=== PATIENT | female | born 1960 | race Caucasian/White ===

== ENCOUNTER 2017-09-22 14:00 | Observation (INO) | payer MEDICARE, MEDICAID ==
[~2017-09-22] VITALS: Ht 167.6 cm; Wt 63.6 kg
[~2017-09-22 14:00] MED LIST: AMOXICILLIN500 MG PO; BC FAST PAIN OR; CEPHALEXIN500 MG PO; CIPRO500 MG PO; CIPROFLOXACN500 MG PO; DILAUDID 2MG2 MG/TA1 PO; FIORICET PO; FLAGYL500 MG PO; FLEXERIL OR; FLEXERIL10 MG OR; FLONASE NASAL50 MCG; LISINOPRIL10 MG PO; LORTAB 5 OR; LORTAB5 PO; MEDDOSEPAK PO; METRONIDAZOL500 MG PO; NO; ROBITUSSIN AC10 ML PO; ULTRAM50 M1 PO; ZPAK PO
--- NOTE | 2017-09-22 14:04 | NUR ---
AMBULATORY TO ER ROOM 15, TO BED
--- NOTE | 2017-09-22 14:48 | NUR ---
PT RESTS IN THE STRETCHER, NO ACUTE DISTRESS, STATES THAT SHE HAS BEEN FIGHTING THIS BUG FOR 14 DAYS, NOT IMPROVING.
[2017-09-22 15:23] LABS: HEMATOCRIT 44.6 % (37.0-47.0); HEMOGLOBIN 14.9 g/dl (12.0-16.0); IMMATURE GRANULOCYTES 0.5 % (0.0-1.0); MEAN CELL VOLUME 98.7 fL CALC (80.0-100.0); MEAN CORPUSCULAR HGB CONC 33.4 g/L CALC (32.0-36.0); NEUT# 3.03 thou/uL (2.00-7.15); RED BLOOD COUNT 4.52 mill/uL (4.20-5.60); RED CELL DISTRI WIDTH 12.1 % (11.5-15.5)
[2017-09-22 15:41] LABS: URINE BILIRUBIN - DIPSTICK NEGATIVE (NEGATIVE); URINE BLOOD DIPSTICK NEGATIVE (NEGATIVE); URINE COLOR YELLOW; URINE GLUCOSE - DIPSTICK NEGATIVE (NEGATIVE); URINE KETONE NEGATIVE (NEGATIVE); URINE LEUK ESTERASE NEGATIVE (NEGATIVE); URINE NITRITE - DIPSTICK NEGATIVE (Negative); URINE PH 5.5 (4.5-8.0); URINE PROTEIN - DIPSTICK NEGATIVE (NEG-TRACE); URINE SPECIFIC GRAVITY 1.025; URINE UROBILINOGEN - DIPSTICK 0.2 E.U./dL (0.2)
[2017-09-22 15:42] LABS: URINE CLARITY CLEAR
[2017-09-22 15:44] LABS: ALBUMIN 4.6 g/dL (3.2-5.0); ALKALINE PHOSPHATASE 131 u/l (38-126); ANION GAP 17 (6-22 (CALC)); BILIRUBIN, TOTAL 0.5 mg/dL (0.0-1.4); BUN 18 mg/dL (7-17); BUN/CREATININE RATIO 21 (12-20 (CALC)); CARBON DIOXIDE 26 mmol/l (22-30); CHLORIDE 106 mmol/l (95-108); CREATININE 0.8 mg/dL (0.5-1.0); GFR > 60 ML/MIN (>=60 (CALC)); GFR FOR AFR.AMER. > 60 ML/MIN (>=60 (CALC)); LIPASE 284 u/l (23-300); POTASSIUM 4.3 mmol/l (3.5-5.1); SGOT/AST 28 u/l (14-36); SGPT/ALT 34 u/l (9-52); SODIUM 144 mmol/l (137-146); TOTAL PROTEIN 7.5 g/dL (6.3-8.2)
--- NOTE | 2017-09-22 16:10 | NUR ---
SBAR PRINTED TO FLOOR
[2017-09-22 17:00] VITALS: BP 116/68
--- NOTE | 2017-09-22 17:00 | NUR ---
PT PROVIDED ZOFRAN AND MORPHINE PRIOR TO DEPARTURE TO FLOOR. REPORT WAS TO
--- NOTE | 2017-09-22 17:15 | NUR ---
PT.ARRIVED TO FLOOR VIA STRETCHER ACCOMPANIED BY SUKHI OF ED. PT.SELF AMBULATED TO STANDING SCALE AND TO BED. PT.APPEARS TO BE IN STABLE CONDITION AT THIS TIME. V/S ARE BEING ASSESSED AND PT.ORIENTED TO ROOM,CALL SYSTEM, LIGHTS, BED AND TV. PT.HAS BEEN INSTRUCTED TO CALL IF SHE NEEDS ANY ASSISTANCE OR INCREASED PAIN.
[2017-09-22 18:55] VITALS: BP 109/64
--- NOTE | 2017-09-22 19:00 | NUR ---
RECEIVED CHANGE OF SHIFT REPORT FROM RL MURRAY. PATIENT ALERT AND ORIENTED AND LYING IN BED. REPORTS UNRELIEVED PAIN OF 3 OD 0-10 PAIN SCALE TO EPIGASTRIC AREA. WILL CONTINUE TO MONITOR.
--- NOTE | 2017-09-23 | NUR ---
PATIENT RESTING QUIETLY WITH EYES CLOSED AND APPEARS TO BE ASLEEP. NO APPARENT ACUTE DISTRESS NOTED.
--- NOTE | 2017-09-23 04:00 | NUR ---
PATIENT AWAKE AND LYING IN BED. NO APPARENT ACUTE CHANGES NOTED IN PT'S CONDITION.
[2017-09-23 04:35] VITALS: BP 96/63
[2017-09-23 06:25] LABS: CHOLESTEROL HDL RATIO 3.6 (<4.4 (CALC))
[2017-09-23 07:40] VITALS: BP 120/59
--- NOTE | 2017-09-23 07:40 | NUR ---
PT.IS UPRIGHT IN BED AWAKE. REPORT HAS BEEN RECEIVED FROM NIGHT NURSE NNAMDI. PT.APPEARS TO BE STABLE AT THIS TIME, DENIES ANY PAIN, BUT REPORTS HAVING PAIN DURING THE NIGHT. V/S AND PT.ASSESSMENT COMPLETE, NEG ASSESSMENT AT THIS TIME, NO BM REPORTED, LUNG SOUNDS ARE CLEAR AND PT.REPORTS NO DIFFICULTY URINATING, NEURO'S ARE INTACT. CALL LIGHT IS W/IN REACH AND PT.HAS BEEN INSTRUCTED TO CALL IF ANY ASSISTANCE IS NEEDED.
--- NOTE | 2017-09-23 10:38 | NUR ---
PT.MEDICATED FOR EPIGASTRIC PAIN 10/23 W/MAGIC MOUTHWASH AND PROTONIX. POC DISCUSSED AND NICOTINE PATCH WAS REPLACED. FAMILY JUST ARRIVED TO VISIT. CALL LIGHT IS AT SIDE AND PT.HAS BEEN INSTRUCTED TO CALL IF ANY NEEDS ARISE
[2017-09-23 11:07] VITALS: BP 111/52
--- NOTE | 2017-09-23 11:20 | NUR ---
PT.REPORTS THAT SHE DOES NOT FEEL LIKE THE MAGIC MOUTH WASH IMPROVED SYMPTOMS VERY MUCH, BUT THAT SHE THINKS THAT IT MAY BE MUSCULER FROM COUGHING OVER THE LAST TWO WEEKS.
[2017-09-23] MEDS ORDERED: ROBITUSSIN AC10 ML PO (12:12)
[2017-09-23] MEDS ORDERED: MEDDOSEPAK PO (12:14)
== END 2017-09-23 13:04 | disposition home or self-care (01) ==
LOC: ED 14:00 → ED-I 15:56 → ED 16:23 → MS2 16:24
PROVIDERS: Family Medicine; ADMIT Internal Medicine; ATTEND Internal Medicine
DX: R07.89 Other chest pain (principal); J40 Bronchitis, not specified as acute or chronic; I10 Essential (primary) hypertension; F17.210 Nicotine dependence, cigarettes, uncomplicated

== ENCOUNTER → 2018-05-20 | Outpatient (REF) | payer MEDICARE, MEDICAID ==
[2018-05-20 09:58] LABS: URINE BILIRUBIN - DIPSTICK NEGATIVE (NEGATIVE); URINE BLOOD DIPSTICK NEGATIVE (NEGATIVE); URINE COLOR YELLOW; URINE GLUCOSE - DIPSTICK NEGATIVE (NEGATIVE); URINE KETONE TRACE mg/dL (NEGATIVE); URINE LEUK ESTERASE NEGATIVE (NEGATIVE); URINE NITRITE - DIPSTICK NEGATIVE (Negative); URINE PH 5.5 (4.5-8.0); URINE PROTEIN - DIPSTICK NEGATIVE (NEG-TRACE); URINE SPECIFIC GRAVITY >=1.030; URINE UROBILINOGEN - DIPSTICK 0.2 E.U./dL (0.2)
[2018-05-20 10:06] LABS: URINE CLARITY CLEAR
[2018-05-20 10:22] LABS: ALBUMIN 4.3 g/dL (3.2-5.0); ALKALINE PHOSPHATASE 110 u/l (38-126); ANION GAP 15 (6-22 (CALC)); BILIRUBIN, TOTAL 0.3 mg/dL (0.0-1.4); BUN 18 mg/dL (7-17); BUN/CREATININE RATIO 23 (12-20 (CALC)); CALCULATED LDLCHOLESTEROL 95 mg/dL (62-129 (CALC)); CARBON DIOXIDE 26 mmol/l (22-30); CHLORIDE 108 mmol/l (95-108); CHOLESTEROL HDL RATIO 2.6 (<4.4 (CALC)); CREATININE 0.8 mg/dL (0.5-1.0); GFR > 60 ML/MIN (>=60 (CALC)); GFR FOR AFR.AMER. > 60 ML/MIN (>=60 (CALC)); HDL CHOLESTEROL 71 mg/dL (>=40); SGOT/AST 20 u/l (14-36); SODIUM 144 mmol/l (137-146); TOTAL CHOLESTEROL 188 mg/dl (0-199); TOTAL TRIGLYCERIDES 110 mg/dl (30-149); VLDL CHOLESTROL 22 mg/dl (2-49 (CALC))
[2018-05-20 10:28] LABS: POTASSIUM 5.2 mmol/l (3.5-5.1)
[2018-05-20 10:35] LABS: HEMATOCRIT 42.6 % (37.0-47.0); HEMOGLOBIN 14.3 g/dl (12.0-16.0); MEAN CELL VOLUME 100.2 fL CALC (80.0-100.0); MEAN CORPUSCULAR HGB 33.6 pG CALC (26.0-32.0); MEAN CORPUSCULAR HGB CONC 33.6 g/L CALC (32.0-36.0); RED BLOOD COUNT 4.25 mill/uL (4.20-5.60); RED CELL DISTRI WIDTH 12.1 % (11.5-15.5)
[2018-05-20 10:50] LABS: TSH, 3RD GENERATION 2.32 uIU/mL (0.47 - 4.68)
== END | disposition home or self-care (01) ==
LOC: LAB 09:09
PROVIDERS: ATTEND Nurse Practitioner Adult Health
DX: I10 Essential (primary) hypertension (principal)

== ENCOUNTER 2018-09-28 06:36 | Day surgery (SDC) | payer MEDICARE, MEDICAID ==
[~2018-09-28] VITALS: Ht 167.6 cm; Wt 61.7 kg
[~2018-09-28 06:36] MED LIST changes: +NORCO1 TA2 PO
[2018-09-28 09:25] VITALS: BP 133/77
== END 2018-09-28 09:35 | disposition home or self-care (01) ==
LOC: ENDO 06:36
PROVIDERS: ATTEND Surgery
PROC: 0DJD8ZZ Inspection of Lower Intestinal Tract, Via Natural or Artificial Opening Endoscopic (ICD-10-PCS; principal; 2018-09-28)
DX: Z12.11 Encounter for screening for malignant neoplasm of colon (principal); K57.30 Diverticulosis of large intestine without perforation or abscess without bleeding; K56.699 Other intestinal obstruction unspecified as to partial versus complete obstruction; I10 Essential (primary) hypertension; F17.200 Nicotine dependence, unspecified, uncomplicated; Z80.0 Family history of malignant neoplasm of digestive organs

== ENCOUNTER 2019-03-08 13:17 | Emergency (ER) | payer MEDICARE, MEDICAID ==
[~2019-03-08] VITALS: Ht 167.6 cm; Wt 70.0 kg
[2019-03-08 14:05] VITALS: BP 153/76
== END 2019-03-08 14:05 | disposition home or self-care (01) ==
LOC: ED 13:17
DX: S09.90XA Unspecified injury of head, initial encounter (principal); R51 Headache; I10 Essential (primary) hypertension; F17.200 Nicotine dependence, unspecified, uncomplicated; W18.2XXA Fall in (into) shower or empty bathtub, initial encounter; Y93.E1 Activity, personal bathing and showering

== ENCOUNTER 2019-06-06 09:40 | Emergency (ER) | payer MEDICARE, MEDICAID ==
[~2019-06-06] VITALS: Ht 167.6 cm; Wt 95.0 kg
[2019-06-06] MEDS ORDERED: BACTRIM DS1 TAB PO (10:39)
[2019-06-06 10:55] VITALS: BP 139/74
[2019-06-06] MEDS ORDERED: LISINOPRIL40 MG PO (10:57)
[2019-06-06] MEDS ORDERED: HYDROCO/APAP1 TA9 PO (10:58)
[2019-06-06] MEDS ORDERED: DULOXETINE HCL30 MG PO (10:58)
== END 2019-06-06 10:55 | disposition home or self-care (01) ==
LOC: ED 09:40
DX: J01.90 Acute sinusitis, unspecified (principal); I10 Essential (primary) hypertension; F17.210 Nicotine dependence, cigarettes, uncomplicated

== ENCOUNTER 2020-05-13 14:02 | Emergency (ER) | payer MEDICARE, MEDICAID ==
[~2020-05-13] VITALS: Ht 167.6 cm; Wt 66.4 kg
[~2020-05-13 14:02] MED LIST changes: +BACTRIM DS1 TAB PO; +DULOXETINE HCL30 MG PO; +HYDROCO/APAP1 TA9 PO; +LISINOPRIL40 MG PO
[2020-05-13 14:32] LABS: HEMATOCRIT 40.7 % (37.0-47.0); HEMOGLOBIN 13.4 g/dl (12.0-16.0); IMMATURE GRANULOCYTES 0.4 % (0.0-5.0); MEAN CELL VOLUME 100.7 fL CALC (80.0-100.0); MEAN CORPUSCULAR HGB 33.2 pG CALC (26.0-32.0); MEAN CORPUSCULAR HGB CONC 32.9 g/dL CAL (32.0-36.0); NEUT# 6.04 thou/uL (2.00-7.15); RED BLOOD COUNT 4.04 mill/uL (4.20-5.60); RED CELL DISTRI WIDTH 12.2 % (11.5-15.5)
[2020-05-13 14:38] LABS: URINE BILIRUBIN - DIPSTICK NEGATIVE (NEGATIVE); URINE BLOOD DIPSTICK NEGATIVE (NEGATIVE); URINE COLOR YELLOW; URINE GLUCOSE - DIPSTICK NEGATIVE (NEGATIVE); URINE KETONE NEGATIVE (NEGATIVE); URINE LEUK ESTERASE NEGATIVE (NEGATIVE); URINE NITRITE - DIPSTICK NEGATIVE (Negative); URINE PH 5.5 (4.5-8.0); URINE PROTEIN - DIPSTICK NEGATIVE (NEG-TRACE); URINE UROBILINOGEN - DIPSTICK 0.2 E.U./dL (0.2)
[2020-05-13 15:05] LABS: ALBUMIN 4.9 g/dL (3.2-5.0); ALKALINE PHOSPHATASE 134 u/l (38-126); ANION GAP 14 (6-22 (CALC)); BILIRUBIN, TOTAL 0.6 mg/dL (0.0-1.4); BUN 12 mg/dL (7-17); BUN/CREATININE RATIO 18 (12-20 (CALC)); CARBON DIOXIDE 25 mmol/l (22-30); CHLORIDE 103 mmol/l (95-108); CREATININE 0.7 mg/dL (0.5-1.0); GFR > 60 ML/MIN (>=60 (CALC)); GFR FOR AFR.AMER. > 60 ML/MIN (>=60 (CALC)); POTASSIUM 4.3 mmol/l (3.5-5.1); SGOT/AST 26 u/l (14-36); SODIUM 138 mmol/l (137-146)
[2020-05-13] MEDS ORDERED: ZOFRAN4 MG/TAB PO ×2 (16:17)
[2020-05-13] MEDS ORDERED: DICYCLOMINE20 MG PO ×2 (16:17)
[2020-05-13 16:39] VITALS: BP 180/79
== END 2020-05-13 16:39 | disposition home or self-care (01) ==
LOC: ED 14:02
PROVIDERS: Student in an Organized Health Care Education/Training Program
DX: K57.30 Diverticulosis of large intestine without perforation or abscess without bleeding (principal); I10 Essential (primary) hypertension; F17.200 Nicotine dependence, unspecified, uncomplicated
CPT/HCPCS: Q9967

== ENCOUNTER 2020-05-28 08:57 | Emergency (ER) | payer MEDICARE, MEDICAID ==
[~2020-05-28] VITALS: Ht 167.6 cm; Wt 66.0 kg
[~2020-05-28 08:57] MED LIST changes: +DICYCLOMINE20 MG PO; +ZOFRAN4 MG/TAB PO
[2020-05-28 09:49] LABS: HEMATOCRIT 44.4 % (37.0-47.0); HEMOGLOBIN 14.5 g/dl (12.0-16.0); IMMATURE GRANULOCYTES 0.4 % (0.0-5.0); MEAN CELL VOLUME 100.7 fL CALC (80.0-100.0); MEAN CORPUSCULAR HGB 32.9 pG CALC (26.0-32.0); MEAN CORPUSCULAR HGB CONC 32.7 g/dL CAL (32.0-36.0); NEUT# 7.82 thou/uL (2.00-7.15); RED BLOOD COUNT 4.41 mill/uL (4.20-5.60); RED CELL DISTRI WIDTH 12.1 % (11.5-15.5)
[2020-05-28 09:56] LABS: URINE BILIRUBIN - DIPSTICK NEGATIVE (NEGATIVE); URINE BLOOD DIPSTICK NEGATIVE (NEGATIVE); URINE COLOR YELLOW; URINE GLUCOSE - DIPSTICK NEGATIVE (NEGATIVE); URINE KETONE NEGATIVE (NEGATIVE); URINE LEUK ESTERASE NEGATIVE (NEGATIVE); URINE PH 5.5 (4.5-8.0); URINE PROTEIN - DIPSTICK NEGATIVE (NEG-TRACE); URINE UROBILINOGEN - DIPSTICK 0.2 E.U./dL (0.2)
[2020-05-28 10:02] LABS: URINE NITRITE - DIPSTICK POSITIVE (Negative)
[2020-05-28 10:03] LABS: URINE BACTERIA MANY hpf; URINE EPITHELIAL CELLS FEW EPI/hpf (0-FEW)
[2020-05-28 10:06] LABS: ALBUMIN 4.8 g/dL (3.2-5.0); ALKALINE PHOSPHATASE 188 u/l (38-126); AMYLASE 70 u/l (30-110); ANION GAP 16 (6-22 (CALC)); BILIRUBIN, TOTAL 0.8 mg/dL (0.0-1.4); BUN 13 mg/dL (7-17); BUN/CREATININE RATIO 22 (12-20 (CALC)); CARBON DIOXIDE 22 mmol/l (22-30); CHLORIDE 104 mmol/l (95-108); CREATININE 0.6 mg/dL (0.5-1.0); GFR > 60 ML/MIN (>=60 (CALC)); GFR FOR AFR.AMER. > 60 ML/MIN (>=60 (CALC)); LIPASE 115 u/l (23-300); POTASSIUM 4.6 mmol/l (3.5-5.1); SODIUM 137 mmol/l (137-146)
[2020-05-28 10:08] LABS: SGOT/AST 47 u/l (14-36)
[2020-05-28 10:18] LABS: MYOGLOBIN 21 ng/mL (0 - 62)
[2020-05-28] MEDS ORDERED: CIPROFLOXACN500 MG PO (12:36)
[2020-05-28] MEDS ORDERED: METRONIDAZOL500 MG PO (12:36)
[2020-05-28] MEDS ORDERED: ULTRAM50 M1 PO (12:39)
[2020-05-28 13:38] VITALS: BP 147/69
--- NOTE | 2020-05-30 15:41 | NUR ---
Attempted to contact pt concerning urine culture results. Left message to return call to Pharmacy department.
== END 2020-05-28 13:59 | disposition home or self-care (01) ==
LOC: ED 08:57
PROVIDERS: Emergency Medicine
DX: K57.32 Diverticulitis of large intestine without perforation or abscess without bleeding (principal); N39.0 Urinary tract infection, site not specified; B96.20 Unspecified Escherichia coli [E. coli] as the cause of diseases classified elsewhere; I10 Essential (primary) hypertension; F17.210 Nicotine dependence, cigarettes, uncomplicated
CPT/HCPCS: Q9967

== ENCOUNTER 2022-02-19 08:33 | Emergency (ER) | payer MEDICARE, MEDICAID ==
[~2022-02-19] VITALS: Ht 167.6 cm; Wt 65.9 kg
[2022-02-19 08:57] LABS: HEMATOCRIT 38.9 % (37.0-47.0); HEMOGLOBIN 13.1 g/dl (12.0-16.0); IMMATURE GRANULOCYTES 0.2 % (0.0-5.0); MEAN CELL VOLUME 99.5 fL CALC (80.0-100.0); MEAN CORPUSCULAR HGB 33.5 pG CALC (26.0-32.0); MEAN CORPUSCULAR HGB CONC 33.7 g/dL CAL (32.0-36.0); NEUT# 3.7 thou/uL (2.00-7.15); RED BLOOD COUNT 3.91 mill/uL (4.20-5.60); RED CELL DISTRI WIDTH 12.2 % (11.5-15.5)
[2022-02-19 09:31] LABS: URINE BILIRUBIN - DIPSTICK NEGATIVE (NEGATIVE); URINE BLOOD DIPSTICK NEGATIVE (NEGATIVE); URINE COLOR YELLOW; URINE GLUCOSE - DIPSTICK NEGATIVE (NEGATIVE); URINE KETONE NEGATIVE (NEGATIVE); URINE LEUK ESTERASE NEGATIVE (NEGATIVE); URINE PROTEIN - DIPSTICK NEGATIVE (NEG-TRACE); URINE SPECIFIC GRAVITY 1.025; URINE UROBILINOGEN - DIPSTICK 0.2 E.U./dL (0.2)
[2022-02-19 09:32] LABS: URINE NITRITE - DIPSTICK NEGATIVE (Negative)
[2022-02-19 10:06] LABS: ALBUMIN 4.2 g/dL (3.2-5.0); ALKALINE PHOSPHATASE 137 u/l (38-126); BILIRUBIN, TOTAL 0.3 mg/dL (0.0-1.4); BUN 9 mg/dL (8-23); BUN/CREATININE RATIO 15 (12-20 (CALC)); CARBON DIOXIDE 23 mmol/l (22-30); CHLORIDE 104 mmol/l (95-108); CREATININE 0.6 mg/dL (0.5-1.0); GFR FOR AFR.AMER. > 60 ML/MIN (>=60 (CALC)); GFR OTHER RACES > 60 ML/MIN (>=60 (CALC)); SGOT/AST 41 u/l (9-36); SODIUM 137 mmol/l (137-146); TOTAL PROTEIN 7.1 g/dL (6.3-8.2)
[2022-02-19 10:09] LABS: ANION GAP 14 (6-22 (CALC)); POTASSIUM 3.6 mmol/l (3.5-5.1)
[2022-02-19 10:53] VITALS: BP 133/67
== END 2022-02-19 10:58 | disposition home or self-care (01) ==
LOC: ED 08:33
PROVIDERS: Family Medicine
DX: U07.1 COVID-19 (principal); R07.89 Other chest pain; R05.9 Cough, unspecified; I10 Essential (primary) hypertension; F17.200 Nicotine dependence, unspecified, uncomplicated

== ENCOUNTER 2022-03-02 09:18 | Emergency (ER) | payer MEDICARE, MEDICAID ==
[2022-03-02] VITALS (8 sets, daily range): BP systolic 119–146; BP diastolic 58–93
[~2022-03-02] VITALS: Ht 167.6 cm; Wt 60.0 kg
[2022-03-02 09:55] LABS: HEMATOCRIT 38.3 % (37.0-47.0); HEMOGLOBIN 12.6 g/dl (12.0-16.0); IMMATURE GRANULOCYTES 0.8 % (0.0-5.0); MEAN CELL VOLUME 100.5 fL CALC (80.0-100.0); MEAN CORPUSCULAR HGB 33.1 pG CALC (26.0-32.0); MEAN CORPUSCULAR HGB CONC 32.9 g/dL CAL (32.0-36.0); NEUT# 9.26 thou/uL (2.00-7.15); RED BLOOD COUNT 3.81 mill/uL (4.20-5.60); RED CELL DISTRI WIDTH 12.2 % (11.5-15.5)
[2022-03-02 10:32] LABS: ALBUMIN 4.5 g/dL (3.2-5.0); ALKALINE PHOSPHATASE 176 u/l (38-126); BILIRUBIN, TOTAL 0.3 mg/dL (0.0-1.4); BUN 16 mg/dL (8-23); BUN/CREATININE RATIO 24 (12-20 (CALC)); CHLORIDE 102 mmol/l (95-108); CREATININE 0.7 mg/dL (0.5-1.0); GFR FOR AFR.AMER. > 60 ML/MIN (>=60 (CALC)); GFR OTHER RACES > 60 ML/MIN (>=60 (CALC)); POTASSIUM 4.2 mmol/l (3.5-5.1); SGOT/AST 29 u/l (9-36); SODIUM 138 mmol/l (137-146); TOTAL PROTEIN 7.5 g/dL (6.3-8.2)
[2022-03-02 10:37] LABS: ANION GAP 11 (6-22 (CALC)); CARBON DIOXIDE 29 mmol/l (22-30)
[2022-03-02] MEDS ORDERED: DOXY-CAPS100 MG PO (10:50)
[2022-03-02] MEDS ORDERED: PROAIR HFA108 MCG/AC PO (10:50)
[2022-03-02] MEDS ORDERED: PREDNISONE50 MG PO (10:54)
== END 2022-03-02 11:10 | disposition home or self-care (01) ==
LOC: ED 09:18
PROVIDERS: Family Medicine
DX: U07.1 COVID-19 (principal); R06.02 Shortness of breath; I10 Essential (primary) hypertension; F17.210 Nicotine dependence, cigarettes, uncomplicated

== ENCOUNTER 2022-10-12 22:45 | Observation (INO) | payer MEDICARE, MEDICAID ==
[~2022-10-12] VITALS: Ht 167.6 cm; Wt 63.0 kg
[~2022-10-12 22:45] MED LIST changes: +DOXY-CAPS100 MG PO; +PREDNISONE50 MG PO; +PROAIR HFA108 MCG/AC PO
[2022-10-12 22:57] VITALS: BP 138/73
[2022-10-12 23:00] VITALS: BP 125/76
[2022-10-12 23:15] VITALS: BP 121/59
[2022-10-12 23:30] VITALS: BP 109/59
[2022-10-12 23:45] VITALS: BP 110/56
[2022-10-13] VITALS (21 sets, daily range): BP systolic 101–156; BP diastolic 49–77
[2022-10-13 00:27] LABS: BASO% 0.6 % (0-3); EOS% 2.9 % (0-8); HEMATOCRIT 44.1 % (37.0-47.0); HEMOGLOBIN 14.5 g/dl (12.0-16.0); IMMATURE GRANULOCYTES 0.6 % (0.0-5.0); LYMPH% 36.3 % (15-41); MEAN CELL VOLUME 98.4 fL CALC (80.0-100.0); MEAN CORPUSCULAR HGB 32.4 pG CALC (26.0-32.0); MEAN CORPUSCULAR HGB CONC 32.9 g/dL CAL (32.0-36.0); NEUT# 3.31 thou/uL (2.00-7.15); NEUT% 53.6 % (42-76); RED BLOOD COUNT 4.48 mill/uL (4.20-5.60); RED CELL DISTRI WIDTH 11.8 % (11.5-15.5)
[2022-10-13 01:04] LABS: ALBUMIN 4.6 g/dL (3.2-5.0); ALKALINE PHOSPHATASE 142 u/l (38-126); BUN 12 mg/dL (8-23); BUN/CREATININE RATIO 17 (12-20 (CALC)); CHLORIDE 112 mmol/l (95-108); CREATININE 0.7 mg/dL (0.5-1.0); GFR FOR AFR.AMER. > 60 ML/MIN (>=60 (CALC)); GFR OTHER RACES > 60 ML/MIN (>=60 (CALC)); SGOT/AST 33 u/l (9-36); SODIUM 142 mmol/l (137-146); TOTAL PROTEIN 7.6 g/dL (6.3-8.2)
[2022-10-13 01:06] LABS: ANION GAP 14 (6-22 (CALC)); BILIRUBIN, TOTAL 0.2 mg/dL (0.02-1.3); CARBON DIOXIDE 20 mmol/l (22-30); POTASSIUM 3.8 mmol/l (3.5-5.1)
[2022-10-13] MEDS ORDERED: NORVASC PO (07:35)
== END 2022-10-13 16:58 | disposition home or self-care (01) ==
LOC: ED 22:45 → ED-I 10-13 04:30 → ED 10-13 05:46 → MS2 10-13 05:47
PROVIDERS: Emergency Medicine; ADMIT Internal Medicine; ATTEND Internal Medicine
DX: R07.9 Chest pain, unspecified (principal); I10 Essential (primary) hypertension; F17.210 Nicotine dependence, cigarettes, uncomplicated; M19.90 Unspecified osteoarthritis, unspecified site

== ENCOUNTER 2023-06-25 10:54 | Inpatient (IN) | payer MEDICARE, MEDICAID ==
[~2023-06-25] VITALS: Ht 167.6 cm; Wt 64.0 kg
[~2023-06-25 10:54] MED LIST changes: +AMOX/K CLAV875 M1 PO; +METRONIDAZOLE500 MG PO; +NORVASC PO
[2023-06-25 11:00] VITALS: BP 146/71
--- NOTE | 2023-06-25 11:03 | NUR ---
PT TO ROOM 15 REPORTS DOCTOR ADVISED PT TO COME TO ED FOR TREATMENT OF BACERIAL IN CULTURES OBTAINED FROM SAMPLES OF ADMISSION FROM WEDNESDAY. PT REPORTS BEING DISCHARGED YESTERDAY FROM MED/SURG FOR DIVERTICULITIS. PT REPORT 5/10 ABDOMINAL PAIN WITH BLOOD IN STOOL, SYMPTOMS HAVE NOT CHANGED SINCE ADMISSION VISIT.
[2023-06-25 11:30] VITALS: BP 137/75
[2023-06-25 12:26] LABS: BASO% 0.4 % (0-3); EOS% 0.4 % (0-8); HEMATOCRIT 40.4 % (37.0-47.0); HEMOGLOBIN 13.4 g/dl (12.0-16.0); IMMATURE GRANULOCYTES 0.2 % (0.0-5.0); LYMPH% 12.3 % (15-41); MEAN CELL VOLUME 103.1 fL CALC (80.0-100.0); MEAN CORPUSCULAR HGB 34.2 pG CALC (26.0-32.0); MEAN CORPUSCULAR HGB CONC 33.2 g/dL CAL (32.0-36.0); NEUT# 10.2 thou/uL (2.00-7.15); NEUT% 80.7 % (42-76); RED BLOOD COUNT 3.92 mill/uL (4.20-5.60); RED CELL DISTRI WIDTH 11.8 % (11.5-15.5)
--- NOTE | 2023-06-25 12:30 | NUR ---
CHECKED ON PT. NAD A THIS TIME. CALL LIGHT IS WITHIN REACH OF PT.
[2023-06-25 12:38] LABS: ALKALINE PHOSPHATASE 158 u/l (38-126); ANION GAP 19 (6-22 (CALC)); BUN 8 mg/dL (8-23); BUN/CREATININE RATIO 11 (12-20 (CALC)); CARBON DIOXIDE 21 mmol/l (22-30); CHLORIDE 104 mmol/l (95-108); CREATININE 0.7 mg/dL (0.5-1.0); GFR FOR AFR.AMER. > 60 ML/MIN (>=60 (CALC)); GFR OTHER RACES > 60 ML/MIN (>=60 (CALC)); POTASSIUM 4.1 mmol/l (3.5-5.1); SGOT/AST 42 u/l (9-36); SODIUM 139 mmol/l (137-146)
[2023-06-25 12:39] LABS: ALBUMIN 4.3 g/dL (3.2-5.0); BILIRUBIN, TOTAL 0.6 mg/dL (0.02-1.3); TOTAL PROTEIN 7.2 g/dL (6.3-8.2)
--- NOTE | 2023-06-25 13:20 | NUR ---
CHECKED ON PT. NAD AT THIS TIME. CALL LIGHT IS WITHIN REACH OF PT.
--- NOTE | 2023-06-25 15:46 | NUR ---
CHECKED ON PT. NAD AT THIS TIME. AWAITING A ROOM ASSIGNMENT. PT WAS OFFERED A WARM BLANKET.
--- NOTE | 2023-06-25 16:20 | NUR ---
CHECKED ON PT. NAD AT THIS TIME. CALL LIGHT IS WITHIN REACH OF PT. FAMILY MEMBERAT BEDSIDE.
--- NOTE | 2023-06-25 18:00 | NUR ---
TELEPHONE REPORT GIVEN TO JENY SHINE ON [facility] FOR PT TO GO TO ROOM 268
--- NOTE | 2023-06-25 18:14 | NUR ---
CALLED REPORT TO [facility] RN FOR ROOM 268.
--- NOTE | 2023-06-25 18:14 | NUR ---
REPORT RECIEVED FROM ER.
--- NOTE | 2023-06-25 18:15 | NUR ---
PT ARRIVED VIA PORTABLE. PT A/OX3. RESPIRATIONS EVEN AND UNLABORED ON ROOM AIR. LUNG SOUNDS CLEAR. HEART RHYTHM NORMAL. BOWEL SOUNDS ACTIVE. #20G LAC PATENT, IVF INFUSING PER ORDER. SKIN INTACT. PT C/O OF 01/23 ABD PAIN, ORDERS RECIEVED. PT DENIES OF ANY ADDITIONAL PAIN OR NEEDS. PT ORIENTED TO ROOM AND CALL LIGHT SYSTEM. ALLERGIES NOTED. ALL SAFETY PRECAUTIONS ARE IN PLACE WITH CALL LIGHT IN REACH.
[2023-06-25 18:22] VITALS: BP 153/71
--- NOTE | 2023-06-25 18:27 | NUR ---
PT TRANSPORTED [place] [facility] AND BEDSIDE REPORT GIVEN TO JENY SHINE. PT IS ALERT AND ORIENTED X3, ON ROOM AIR, HAS A PATENT LAC 20 GAUGE IV. PT IS AMBULATORY WITHOUT ASSISTANCE. NO CONCERNS AT TIME OF TRANSFER OF CARE.
--- NOTE | 2023-06-25 18:27 | NUR ---
PT TRANSPORTED TO [facility] ROOM 268 AND REPORT G
[2023-06-25 18:44] LABS: URINE BILIRUBIN - DIPSTICK Negative (NEGATIVE); URINE BLOOD DIPSTICK Negative (NEGATIVE); URINE GLUCOSE - DIPSTICK Negative (NEGATIVE); URINE KETONE Negative (NEGATIVE); URINE LEUK ESTERASE Negative (NEGATIVE); URINE NITRITE - DIPSTICK Negative (Negative); URINE PROTEIN - DIPSTICK Negative (NEG-TRACE); URINE SPECIFIC GRAVITY 1.015; URINE UROBILINOGEN - DIPSTICK 0.2 E.U./dL (0.2)
[2023-06-25 18:45] LABS: URINE COLOR Yellow
--- NOTE | 2023-06-25 20:10 | NUR ---
Patient awake alert and oriented x 3, c/o abdominal pain 01/23, will medicate per order. IV NS infusing at 100ml/HR, assessment completed, vital signs stable, call light with reach, and bed in lowest position.
--- NOTE | 2023-06-26 00:03 | NUR ---
Patient resting quietly in bed, pain c/o abdominal and low back pain 8/10, medicated per order and medication effective. IV NS at 100ml/hr infusing, patient tolerated all medications well, call light within reach and bed in lowest position, will continue Plan of care.
[2023-06-26 03:41] VITALS: BP 112/53
[2023-06-26 04:42] VITALS: BP 112/53
[2023-06-26 05:04] LABS: BASO% 0.7 % (0-3); EOS% 1.6 % (0-8); HEMOGLOBIN 11.6 g/dl (12.0-16.0); IMMATURE GRANULOCYTES 0.1 % (0.0-5.0); LYMPH% 29.5 % (15-41); MEAN CELL VOLUME 103.9 fL CALC (80.0-100.0); MEAN CORPUSCULAR HGB 34.4 pG CALC (26.0-32.0); MEAN CORPUSCULAR HGB CONC 33.1 g/dL CAL (32.0-36.0); MONO% 9.2 % (2-13); NEUT# 3.97 thou/uL (2.00-7.15); NEUT% 58.9 % (42-76); RED BLOOD COUNT 3.37 mill/uL (4.20-5.60); RED CELL DISTRI WIDTH 11.8 % (11.5-15.5)
--- NOTE | 2023-06-26 05:30 | NUR ---
Patient awake alert and oriented, c/o abdominal pain 5/10 medicated per order, IV NS infusing at 100ml/Hr, IV ABT started, vital signs stable, safety precautions in place.
[2023-06-26 05:43] LABS: ALKALINE PHOSPHATASE 129 u/l (38-126); ANION GAP 11 (6-22 (CALC)); BILIRUBIN, TOTAL 0.4 mg/dL (0.02-1.3); BUN 6 mg/dL (8-23); BUN/CREATININE RATIO 12 (12-20 (CALC)); CARBON DIOXIDE 22 mmol/l (22-30); CHLORIDE 112 mmol/l (95-108); CREATININE 0.6 mg/dL (0.5-1.0); GFR FOR AFR.AMER. > 60 ML/MIN (>=60 (CALC)); GFR OTHER RACES > 60 ML/MIN (>=60 (CALC)); POTASSIUM 4.1 mmol/l (3.5-5.1); SGOT/AST 23 u/l (9-36); SODIUM 140 mmol/l (137-146)
[2023-06-26 05:48] LABS: ALBUMIN 3.3 g/dL (3.2-5.0); TOTAL PROTEIN 5.5 g/dL (6.3-8.2)
[2023-06-26 06:30] VITALS: BP 124/56
--- NOTE | 2023-06-26 07:20 | NUR ---
REPORT RECEIVED FROM NIGHT NURSE. PT SITTING UP IN BEDSIDE CHAIR; ALERT AND ORIENTED X 3. C/O 6/10 ABDOMINAL PAIN; REPORTS THAT TRAMADOL IS EFFECTIVE, BUT ONLY FOR A SHORT TIME. DENIES SHORTNESS OF BREATH; RESPIRATIONS EVEN AND UNLABORED ON ROOM AIR. ABDOMEN SOFT AND DISTENDED; REPORTS A SMALL EVENT OF DIARRHEA THIS MORNING. IV FLUIDS INFUSING WITHOUT DIFFICULTY; IV SITE APPEARS HEALTHY. PLAN OF CARE REVIEWED. PT ENCOURAGED TO VERBALIZE CONCERNS; STATES UNDERSTANDING. SAFETY MEASURES IN PLACE; CALL LIGHT WITHIN REACH.
--- NOTE | 2023-06-26 11:46 | NUR ---
PT RESTING IN BED SEMI FOWLERS; ABDOMINAL PAIN CURRENTLY A 4/10; WARM PACKS PROVIDED FOR ABDOMEN AND LOWER BACK. MORPHINE GIVEN AFTER SHOWER EARLIER WITH GOOD EFFECT. INDEPENDENT IN ROOM. NO OTHER REQUESTS OR CONCERNS AT THIS TIME. CALL LIGHT WITHIN REACH.
[2023-06-26 14:45] VITALS: BP 147/68
--- NOTE | 2023-06-26 19:10 | NUR ---
PATIENT RESTING IN BED. ALERT AND ORIENTED. ASSESSMENT COMPLETE. DENIES PAIN AT THIS TIME. NO DISTRESS NOTED. BED REMAINS IN LOW POSITION. CALL PRATT IN REACH.
[2023-06-26 19:34] VITALS: BP 138/74
--- NOTE | 2023-06-26 23:04 | NUR ---
PATIENT REQUESTED PRN PAIN MEDICATION. TOLERATED WELL.
--- NOTE | 2023-06-27 04:30 | NUR ---
PATIENT REMAINS RESTING IN BED. NO COMPLAINTS VOICED AT THIS TIME. BED REMAINS IN LOW POSITION. CALL PRATT IN REACH.
[2023-06-27 04:54] LABS: HEMATOCRIT 33.5 % (37.0-47.0); MEAN CELL VOLUME 102.8 fL CALC (80.0-100.0); MEAN CORPUSCULAR HGB 33.7 pG CALC (26.0-32.0); MEAN CORPUSCULAR HGB CONC 32.8 g/dL CAL (32.0-36.0); RED BLOOD COUNT 3.26 mill/uL (4.20-5.60); RED CELL DISTRI WIDTH 11.7 % (11.5-15.5)
[2023-06-27 05:10] LABS: ALBUMIN 3.1 g/dL (3.2-5.0); ALKALINE PHOSPHATASE 122 u/l (38-126); ANION GAP 12 (6-22 (CALC)); BILIRUBIN, TOTAL 0.4 mg/dL (0.02-1.3); BUN 3 mg/dL (8-23); BUN/CREATININE RATIO 7 (12-20 (CALC)); CARBON DIOXIDE 22 mmol/l (22-30); CHLORIDE 111 mmol/l (95-108); CREATININE 0.5 mg/dL (0.5-1.0); GFR FOR AFR.AMER. > 60 ML/MIN (>=60 (CALC)); GFR OTHER RACES > 60 ML/MIN (>=60 (CALC)); MAGNESIUM 1.8 mg/dL (1.6-2.3); POTASSIUM 3.9 mmol/l (3.5-5.1); SGOT/AST 21 u/l (9-36); SODIUM 141 mmol/l (137-146); TOTAL PROTEIN 5.5 g/dL (6.3-8.2)
--- NOTE | 2023-06-27 07:15 | NUR ---
REPORT RECEIVED FROM RL SHORE. PT SITTING UP IN BEDSIDE CHAIR; ALERT AND ORIENTED. C/O /10 ABDOMINAL CRAMPING. REPORTS THAT SHE HAD 10 SMALL, SLIMY GREEN BOWEL MOVEMENTS THROUGHOUT THE NIGHT; REQUESTS IMMODIUM. HAT PLACED IN TOILET FOR STOOL SAMPLE. RESPIRATIONS EVEN AND UNLABORED ON ROOM AIR; INSPIRATORY WHEEZING TO LEFT LOWER LOBE; DENIES SOB. IV SITE APPEARS HEALTHY; IV FLUIDS CONTINUE TO INFUSE AT 100ML/HR. PT TOLERATING FULL LIQUID DIET; DENIES NAUSEA. PLAN OF CARE REVIEWED. PT ENCOURAGED TO VERBALIZE CONCERNS; STATES UNDERSTANDING. SAFETY MEASURES IN PLACE; CALL LIGHT WITHIN REACH.
[2023-06-27 08:47] LABS: C. DIFFICILE TOXIN A&B NEGATIVE (NEGATIVE)
[2023-06-27 08:49] VITALS: BP 133/67
--- NOTE | 2023-06-27 11:20 | NUR ---
FAMILY AT BEDSIDE. PROBIOTIC ADMINSITERED PER PT REQUEST. IV FLUIDS CONTINUE TO INFUSE AT 100ML/HR; PT REPORTS FEELING SLIGHT SWELLING HER IN HER LEGS WHILE SITTING UP IN CHAIR; LEGS ELEVATED AND LUIS HOSE REMOVED FOR COMFORT. LUNG SOUNDS UNCHANGED. PT INTRUCTED TO NOTIFIY NURSE OF ANY INCREASED SWELLING OR SHORTNESS OF BREATH. WILL CONTINUE TO MONITOR.
--- NOTE | 2023-06-27 14:15 | NUR ---
TRAMADOL GIVEN FOR 3/10 ABDOMINAL CRAMPING AND IMMODIUM GIVEN FOR FREQUENT DIARRHEA AFTER STOOL SPECIMEN RESULTS OBTAINED. FLAGYL INFUSING AT THIS TIME. IV FLUIDS DECREASED TO KVO; PT ADVANCED TO BRAT/BLAND DIET FOR LUNCH; TOLERATING WELL AND DRINKING ORAL FLUIDS. AMBULATORY IN ROOM AND TO BATHROOM. CALL LIGHT WITHIN REACH.
[2023-06-27 15:00] VITALS: BP 157/81
--- NOTE | 2023-06-27 16:30 | NUR ---
PT SITTING UP IN CHAIR WATCHING TV. REPORTS THAT THE IMMODIUM WAS EFFECTIVE AND SHE HAS NOT HAD A BOWEL MOVEMENT IN AN HOUR AND A HALF. IV FLUIDS CONTINUE AT KVO. CALL LIGHT WITHIN REACH.
--- NOTE | 2023-06-27 19:30 | NUR ---
PATIENT RESTING IN BED. ALERT AND ORIENTED. ABLE TO MAKE NEEDS KNOWN. ASSESSMENT COMPLETE. NO COMPLAINTS OF PAIN. NO DISTRESS NOTED. NO COMPLAINTS OF DIARRHEA SO FAR. BED REMAINS IN LOW POSITION. CALL PRATT IN REACH.
[2023-06-27 19:58] VITALS: BP 125/59
--- NOTE | 2023-06-28 00:20 | NUR ---
PATIENT REMAINS RESTING IN BED. NO COMPLAINTS VOICED AT THIS TIME. DENIES ANY PAIN. NO DISTRESS NOTED. BED REMAINS IN LOW POSITION. CALL PRATT IN REACH.
--- NOTE | 2023-06-28 03:24 | NUR ---
PRN PAIN MEDICATION GIVEN PER PATIENT REQUEST. TOLERATED WELL. DENIES NEEDING ANYTHING ELSE AT THIS TIME.
[2023-06-28 04:17] VITALS: BP 124/61
[2023-06-28 05:38] LABS: HEMATOCRIT 33.4 % (37.0-47.0); HEMOGLOBIN 11.3 g/dl (12.0-16.0); MEAN CELL VOLUME 102.1 fL CALC (80.0-100.0); MEAN CORPUSCULAR HGB 34.6 pG CALC (26.0-32.0); MEAN CORPUSCULAR HGB CONC 33.8 g/dL CAL (32.0-36.0); RED BLOOD COUNT 3.27 mill/uL (4.20-5.60); RED CELL DISTRI WIDTH 11.7 % (11.5-15.5)
[2023-06-28 05:47] LABS: ALBUMIN 3.4 g/dL (3.2-5.0); ALKALINE PHOSPHATASE 118 u/l (38-126); ANION GAP 11 (6-22 (CALC)); BILIRUBIN, TOTAL 0.3 mg/dL (0.02-1.3); BUN 4 mg/dL (8-23); BUN/CREATININE RATIO 6 (12-20 (CALC)); CARBON DIOXIDE 22 mmol/l (22-30); CHLORIDE 112 mmol/l (95-108); CREATININE 0.6 mg/dL (0.5-1.0); GFR FOR AFR.AMER. > 60 ML/MIN (>=60 (CALC)); GFR OTHER RACES > 60 ML/MIN (>=60 (CALC)); MAGNESIUM 1.8 mg/dL (1.6-2.3); POTASSIUM 3.8 mmol/l (3.5-5.1); SGOT/AST 23 u/l (9-36); SODIUM 140 mmol/l (137-146); TOTAL PROTEIN 5.4 g/dL (6.3-8.2)
--- NOTE | 2023-06-28 08:00 | NUR ---
REPORT RECIECED FROM NIGHT RN. PT IS A/O. PT UP TOCHAIR; AMBULATES INDEPENDENTLY. PT ADMITTED FOR BACTEREMIA WITH ABDOMINAL PAIN AND DIARRHEA. PT REPORTS 2 LOOSE/ GREEN BM'S ON GOVERNMENT CONTRACTS MANAGER,NONE YET THIS MORNING. LUNGS CLEAR; PT IS ON RA.NO COUGH OR SOB NOTED. HEART SOUNDS NORMAL; NO AUSCULTATION OF MURMUR. BOWEL SOUNDS ACTIVE. PULSES STRONG ALL EXTREMETIES; NO EDEMA. SKIN W/D/I. IV ACCESS 20G LAC. CALLL LIGHT AND BELONGINGS WITHIN REACH. PT DENIES ANY NEEDS AT THIS TIME.
[2023-06-28 08:23] VITALS: BP 138/67
[2023-06-28 08:30] VITALS: BP 138/67
[2023-06-28] MEDS ORDERED: FLORASTOR250 M1 PO (11:53)
[2023-06-28] MEDS ORDERED: CEFUROXIME500 MG PO (11:54)
--- NOTE | 2023-06-28 12:00 | NUR ---
PT SITTING IN CHAIR. DENIES ANY NEEDS AT THIS TIME. PT AWARE OF PROBABLE DISCHARGE TODAY.
--- NOTE | 2023-06-28 12:15 | NUR ---
PT EDUCATED ON DISCHARGE INSTRUCTIONS AND NEW MEDICATIONS. ALL QUESTIONS ANSWERED. PT IN GOOD CONDITION.
== END 2023-06-28 13:30 | disposition home or self-care (01) | DRG 871 ==
LOC: ED 10:54 → MS2 15:34
PROVIDERS: Emergency Medicine; Nurse Practitioner Family; ADMIT Student in an Organized Health Care Education/Training Program; ATTEND Student in an Organized Health Care Education/Training Program
DX: R78.81 Bacteremia (principal); K57.33 Diverticulitis of large intestine without perforation or abscess with bleeding; I10 Essential (primary) hypertension; F17.200 Nicotine dependence, unspecified, uncomplicated
CPT/HCPCS: J1650; Q9967

== ENCOUNTER 2024-02-10 09:40 | Emergency (ER) | payer MEDICARE, MEDICAID ==
[2024-02-10] VITALS (11 sets, daily range): BP systolic 122–149; BP diastolic 57–75
[~2024-02-10] VITALS: Ht 167.6 cm; Wt 66.2 kg
[~2024-02-10 09:40] MED LIST changes: +CEFUROXIME500 MG PO; +DICYCLOMINE HYD10 MG PO; +FLORASTOR250 M1 PO; +HYDROCODONE POLISTIR PO; +NAPROXEN500 MG PO
[2024-02-10 10:36] LABS: BASO% 0.6 % (0-3); EOS% 0.9 % (0-8); HEMATOCRIT 36.6 % (37.0-47.0); HEMOGLOBIN 12.1 g/dl (12.0-16.0); IMMATURE GRANULOCYTES 0.2 % (0.0-5.0); MEAN CELL VOLUME 101.9 fL CALC (80.0-100.0); MEAN CORPUSCULAR HGB 33.7 pG CALC (26.0-32.0); MEAN CORPUSCULAR HGB CONC 33.1 g/dL CAL (32.0-36.0); MONO% 6.9 % (2-13); NEUT# 4.04 thou/uL (2.00-7.15); NEUT% 62.4 % (42-76); RED BLOOD COUNT 3.59 mill/uL (4.20-5.60); RED CELL DISTRI WIDTH 12.8 % (11.5-15.5)
[2024-02-10 10:51] LABS: ALBUMIN 3.9 g/dL (3.2-5.0); BILIRUBIN, TOTAL 0.3 mg/dL (0.02-1.3); CREATININE 0.8 mg/dL (0.5-1.0); POTASSIUM 4.4 mmol/l (3.5-5.1); TOTAL PROTEIN 6.5 g/dL (6.3-8.2)
[2024-02-10 10:59] LABS: PROTHROMBIN TIME 9.4 SECONDS (9.0-12.5)
[2024-02-10 11:40] LABS: URINE BILIRUBIN - DIPSTICK Negative (NEGATIVE); URINE BLOOD DIPSTICK Negative (NEGATIVE); URINE COLOR Yellow; URINE GLUCOSE - DIPSTICK Negative (NEGATIVE); URINE KETONE Negative (NEGATIVE); URINE LEUK ESTERASE Negative (NEGATIVE); URINE NITRITE - DIPSTICK Negative (Negative); URINE PH 6.5 (4.5-8.0); URINE PROTEIN - DIPSTICK Negative (NEG-TRACE); URINE SPECIFIC GRAVITY 1.015; URINE UROBILINOGEN - DIPSTICK 0.2 E.U./dL (0.2)
== END 2024-02-10 12:46 | disposition home or self-care (01) ==
LOC: ED 09:40
PROVIDERS: Family Medicine
DX: R10.11 Right upper quadrant pain (principal); R74.8 Abnormal levels of other serum enzymes; R16.0 Hepatomegaly, not elsewhere classified; I10 Essential (primary) hypertension; F17.200 Nicotine dependence, unspecified, uncomplicated; Z90.49 Acquired absence of other specified parts of digestive tract
CPT/HCPCS: Q9967

== ENCOUNTER 2024-08-18 21:53 | Emergency (ER) | payer MEDICARE ==
[~2024-08-18] VITALS: Ht 167.6 cm; Wt 66.0 kg
[2024-08-18 22:14] VITALS: BP 120/56
[2024-08-18] MEDS ORDERED: IPRATROPIUM-Albuterol 0.5MG-2.5MG/3 ML NEB ONE (22:20)
[2024-08-18] MEDS ORDERED: ALBUTEROL SULFATE 2.5 MG VIAL IN ONE (22:20)
[2024-08-18] MEDS ORDERED: methylPREDNISolone SODIUM SUCC 125 MG/2 ML SDV IV ONE (22:20)
[2024-08-18 22:30] VITALS: BP 119/54
[2024-08-18 22:37] LABS: BASO% 0.3 % (0-3); HEMATOCRIT 40.1 % (37.0-47.0); HEMOGLOBIN 13.2 g/dl (12.0-16.0); IMMATURE GRANULOCYTES 0.2 % (0.0-5.0); LYMPH% 32.2 % (15-41); MEAN CORPUSCULAR HGB 32.3 pG CALC (26.0-32.0); MEAN CORPUSCULAR HGB CONC 32.9 g/dL CAL (32.0-36.0); MONO% 6.3 % (2-13); NEUT# 5.17 thou/uL (2.00-7.15); RED BLOOD COUNT 4.09 mill/uL (4.20-5.60); RED CELL DISTRI WIDTH 13.5 % (11.5-15.5)
[2024-08-18 23:00] VITALS: BP 132/63
[2024-08-18 23:30] VITALS: BP 116/54
[2024-08-18] MEDS ORDERED: PREDNISONE50 MG PO (23:52)
[2024-08-18] MEDS ORDERED: VENTOLIN HFA IN (23:52)
[2024-08-19 00:45] VITALS: BP 116/54
== END 2024-08-19 00:45 | disposition home or self-care (01) ==
LOC: ED 21:53
PROVIDERS: Family Medicine
DX: J40 Bronchitis, not specified as acute or chronic (principal); I10 Essential (primary) hypertension; F17.200 Nicotine dependence, unspecified, uncomplicated; Z20.822 Contact with and (suspected) exposure to COVID-19